=== PATIENT | male | born 1985 | race Two or more races ===

== ENCOUNTER 2022-04-20 15:43 | Emergency (ER) | payer SELFPAY ==
[~2022-04-20] VITALS: Ht 170.2 cm; Wt 71.5 kg
[2022-04-20 16:06] VITALS: BP 141/111
== END 2022-04-20 17:45 | disposition left against medical advice (07) ==
LOC: ER 15:46
DX: S01.511A Laceration without foreign body of lip, initial encounter (principal); S80.212A Abrasion, left knee, initial encounter; S80.211A Abrasion, right knee, initial encounter; Z53.21 Procedure and treatment not carried out due to patient leaving prior to being seen by health care provider; Y08.89XA Assault by other specified means, initial encounter; Y93.89 Activity, other specified; Y92.89 Other specified places as the place of occurrence of the external cause; Y99.8 Other external cause status
CPT/HCPCS: 70450; 70486